=== PATIENT | female | born 1945 | race Caucasian/White ===

== ENCOUNTER 2020-04-24 10:35 | Emergency (ER) | payer MEDICARE, SELFPAY ==
--- NOTE | ~2020-04-24 | XR_ITS ---
XR wrist LT min 3V DATE: 04/24/2020 11:02 INDICATION: Fall. Generalized left wrist pain TECHNIQUE: 4 views COMPARISON: None FINDINGS: There are subtle virtually nondisplaced distal radial and ulnar styloid process fractures. Normal alignment at the wrist joint. Osteopenia. IMPRESSION: Virtually nondisplaced distal radial and ulnar styloid process fractures Reviewed, dictated and finalized at location A. IMPRESSION: Virtually nondisplaced distal radial and ulnar styloid process jackson whiteside
[2020-04-24 10:53] VITALS: BP 150/85; PULSE 86; RESP 16; TEMP 37.3; O2SAT 98
--- NOTE | 2020-04-24 10:58 | ED.UPPEXIN ---
HPI - Extremity Injury (Upper) General Chief Complaint: Extremity Injury, Upper Stated Complaint: Fell Left wrist pain Time Seen by Provider: 04/24/20 10:58 Source: patient and RN notes reviewed History of Present Illness HPI narrative: Patient is a 75-year-old female who presents the urgent care with complaints of left wrist injury. Patient states that she face planted while walking into [email or web address] approximately 1 hour ago . Patient states that she caught herself with her left wrist and is now having increased pain upon movement with mild swelling. Patient has not taken anything for her symptoms and denies hitting her head or any loss of consciousness. Mild abrasion noted to the right side of the nose as well as small scratch to the frame of the right side of her glasses. Patient is right-hand dominant. No other acute complaints. No acute distress noted. Patient read the plan of care. Related Data Home Medications Medication Instructions Recorded Confirmed No Home Medications 04/24/20 04/24/20 Allergies Allergy/AdvReac Type Severity Reaction Status Date / Time tamoxifen Allergy Mild Rash Verified 07/18/18 12:41 anastrozole Allergy Unknown CHRONIC Verified 07/18/18 12:41 COUGH clarithromycin Allergy Unknown could not Verified 08/16/18 16:08 sleep 48 hours Review of Systems Review of Systems: Narrative: CONSTITUTIONAL: Denies fever, chills, or sweats. EYES: Denies visual changes, redness, or discharge. ENT: Denies rhinorrhea, congestion, sore throat, or otalgia. CARDIOVASCULAR: Denies chest pain, palpitations, or edema. RESPIRATORY: Denies cough or dyspnea. GASTROINTESTINAL: Denies abdominal pain, nausea, vomiting, or diarrhea. GENITOURINARY: Denies dysuria or hematuria. SKIN: Denies rash or itching. MUSCULOSKELETAL: Reports of left wrist pain NEUROLOGIC: Denies headache, numbness, or weakness. All other systems reviewed are negative, except as documented in HPI. [facility] Family History Family History (Updated 04/08/18 @ 14:45 by DOCTOR UNKNOWN) Mother Patient's mother is Father Patient's father is Other Cerebrovascular accident Family history of osteoporosis Social History Social History Smoking status: Never smoker Alcohol intake: never Comments At the time of my signature, I reviewed and agree with the nursing past medical, surgical, social, and family history. There is no relevant family history pertinent to the patient complaint. Exam Narrative: Exam Narrative: GENERAL: This is a well-nourished, well-developed patient, in no apparent distress. HEAD: normocephalic, atraumatic. EYES: PERRL. Sclera clear/white. Vision is grossly intact. EARS: External ears normal NOSE: External nose normal with no obvious nasal discharge, nares without redness, no rhinorrhea. THROAT: Mucous membranes moist NECK: Neck supple SKIN: Small closed facial abrasion to the right side of the nose. Warm, intact with no suspicious lesions or rash, good texture and turgor. NEURO: awake, alert, and oriented to person, place and time. There were no obvious focal neurologic abnormalities. EXTREMITIES: Mild to moderate edema to the left distal radius and ulnar with increased pain upon movement. Positive strong left radial pulse with capillary refill less than 2 seconds. Course Vital Signs Vital signs: Vital Signs Temperature 99.1 F 04/24/20 10:53 Pulse Rate 86 04/24/20 10:53 Respiratory Rate 16 04/24/20 10:53 Blood Pressure 150/85 H 04/24/20 10:53 Pulse Oximetry 98 04/24/20 10:53 Temperature 99.1 F 04/24/20 10:53 Pulse Rate 86 04/24/20 10:53 Respiratory Rate 16 04/24/20 10:53 Blood Pressure 150/85 H 04/24/20 10:53 Pulse Oximetry 98 04/24/20 10:53 Reviewed?patient is informed that they may have pre-hypertension or hypertension based on a blood pressure reading in the department. I recommend the patient call the primary care prov
== END 2020-04-24 11:59 | disposition home or self-care (01) ==
PROVIDERS: Emergency Provider Nurse Practitioner Family; PCP Family Medicine
DX: S52.615A Nondisplaced fracture of left ulna styloid process, initial encounter for closed fracture (principal); W19.XXXA Unspecified fall, initial encounter
CPT/HCPCS: 29125; 73110; 99214; A4565; G0463

== ENCOUNTER 2020-08-18 12:22 | Outpatient (CLI) | payer MEDICARE, SELFPAY ==
--- NOTE | ~2020-08-18 | MM_ITS ---
EXAMINATION: MM screening [facility] BI w pablo HISTORY: Screening mammogram, history of right breast cancer TECHNIQUE: Craniocaudal and mediolateral oblique 3-D tomosynthesis images were obtained and synthetic 2-D images were generated. CAD analysis was submitted and interpreted. COMPARISON: 06/27/2019, 05/13/2018, 05/04/2017 BREAST PARENCHYMAL COMPOSITION: There are scattered areas of fibroglandular density. FINDINGS: There are stable lumpectomy changes in the outer right breast. There is no evidence of susp icious mass, calcification, or architectural distortion to suggest malignancy in either breast. There has been no suspicious interval change. IMPRESSION: 1. No mammographic evidence of malignancy. 2. Recommend routine screening mammography in one year. BI-RADS Category 2: Benign finding(s). Reviewed, dictated and finalized at location A.
== END 2020-08-18 12:23 | disposition home or self-care (01) ==
PROVIDERS: PCP Family Medicine; Visit Provider Physician Assistant Medical
DX: Z12.31 Encounter for screening mammogram for malignant neoplasm of breast (principal)
CPT/HCPCS: 77063; 77067

== ENCOUNTER 2022-01-26 12:56 | Outpatient (CLI) | payer MEDICARE, SELFPAY ==
--- NOTE | ~2022-01-26 | MM_ITS ---
EXAMINATION: MM diagnostic [facility] BI w pablo HISTORY: Itchiness of the breasts. History of right breast cancer. TECHNIQUE: Additional 3-D tomosynthesis images of the breasts were performed and synthetic 2-D images were generated. CAD analysis was submitted and interpreted. COMPARISON: Comparison to multiple prior studies sequentially, with oldest reviewed study dated 04/01. BREAST PARENCHYMAL COMPOSITION: Breast composed of scattered areas of fibroglandular density FINDINGS: The breasts are stable. No new masses, calcifications or architectural distortion are ident ified in either breast to suggest malignancy. IMPRESSION: 1. No mammographic evidence for malignancy in either breast. 2. Routine yearly screening mammogram and regular clinical breast examination are recommended. BI-RADS Category 1: Negative Reviewed, dictated and finalized at location A. E MOUNTER IMPRESSION: 1. No mammographic evidence for malignancy in either breast. 2. Routine yearly screening mammogram and regular clinical breast examination a re recommended. BI-RADS Category 1: Negative
== END 2022-01-26 12:57 | disposition home or self-care (01) ==
LOC: ANHIMG 13:11
PROVIDERS: PCP Family Medicine; Visit Provider Family Medicine
DX: C50.919 Malignant neoplasm of unspecified site of unspecified female breast (principal); R20.8 Other disturbances of skin sensation; N64.4 Mastodynia
CPT/HCPCS: 77062; 77066; G0279

== ENCOUNTER 2022-05-02 07:48 | Outpatient (CLI) | payer MEDICARE, SELFPAY ==
--- NOTE | ~2022-05-02 | DEXA_ITS ---
Bone Density Report Name: CHRISTIANO THOMSON Age: 77 Sex: Female Ethnicity: White Date of : 1945 Indication: postmenopausal; screening for osteoporosis; height loss; prior fracture; cancer; Referring Provider: BAM ABRAHAM Study: Bone densitometry was performed. Exam Date: May 02, 2022 Accession number: [id number] Bone Density: Region BMD T-score Z-score Classification AP Spine(L1-L4) 0.936 -1.0 1.6 Normal Femoral Neck (Left) 0.580 -2.4 -0.2 Osteopenia Total Hip (Left) 0.798 -1.2 0.8 Osteopenia World Health Organization criteria for BMD impression classify patients as: Normal (T-score at or above -1.0), Osteopenia (T-score between -1.0 and -2.5), or Osteoporosis (T-score at or below -2.5). 10-year Fracture Risk: FRAX not reported because: Prior hip or vertebral fracture Previous Exams: Region Exam Age BMD T-score BMD Change BMD Change Date g/cm2 vs Baseline vs Previous AP Spine (L1-L4) 05/02/2022 77 0.936 -1.0 -0.030 (-3.1%) -0.030 (-3.1%) 10/04/2019 74 0.966 -0.7 Total Hip(Left) 05/02/2022 77 0.798 -1.2 -0.031 (-3.7%) -0.031 (-3.7%) 10/04/2019 74 0.828 -0.9 *Denotes significance at 95% confidence level, LSC for AP Spine = 0.022 g/cm2, LSC for Total Hip = 0.027 g/cm2 # Denotes dissimilar scan types or analysis methods Clinical Information Provided by Patient: Have had a previous hip or vertebral fracture Has had a low trauma fracture Has the following medical conditions: Cancer Patient maximum height was 65 Menopause Age: 48 No regular weight bearing exercise Onset of menses at age 10 Number of children 2 Impression: The patient has low bone mass, based on the Left Femoral Neck T-score. The patient has risk factors, including: previous fracture. No significant bone loss was observed. Discussion: INCREASED RISK OF FRACTURE DUE TO HISTORY OF FRACTURE. The patient's previous fracture puts the patient at high risk of a future fracture. In untreated patients, the risk of osteoporotic fracture increases approximately two-fold for each 1.0 SD decrease in T-score. Low bone density is not the only risk factor for fracture; also consider factors such as patient's age, frailty or poor health, risk of falling, risk of injury, previous osteoporotic fracture, family history of osteoporosis, cigarette smoking, low body weight, etc. Not everyone with a low trauma fracture has osteoporosis; osteomalacia and other metabolic bone disorders should also be considered. Patients who have osteoporosis should be evaluated
== END 2022-05-02 07:49 | disposition home or self-care (01) ==
LOC: ANHIMG 07:52
PROVIDERS: PCP Family Medicine; Visit Provider Family Medicine
DX: M85.852 Other specified disorders of bone density and structure, left thigh (principal)
CPT/HCPCS: 77080

== ENCOUNTER 2023-07-02 09:03 | Outpatient (CLI) | payer MEDICARE, SELFPAY ==
[2023-07-02 12:11] LABS: Kit Draw Collected
== END 2023-07-02 09:04 | disposition home or self-care (01) ==
PROVIDERS: PCP Family Medicine; Visit Provider Nurse Practitioner Family
DX: C50.919 Malignant neoplasm of unspecified site of unspecified female breast (principal); D23.9 Other benign neoplasm of skin, unspecified; M85.80 Other specified disorders of bone density and structure, unspecified site; E66.9 Obesity, unspecified; S80.11XA Contusion of right lower leg, initial encounter; X58.XXXA Exposure to other specified factors, initial encounter
CPT/HCPCS: 36415

== ENCOUNTER 2023-12-21 07:07 | Outpatient (CLI) | payer MEDICARE, SELFPAY ==
--- NOTE | ~2023-12-21 | MM_ITS ---
EXAMINATION: MM screening [facility] BI w pablo HISTORY: Screening TECHNIQUE: Craniocaudal and mediolateral oblique 3-D tomosynthesis images were obtained and synthetic 2-D images were generated. CAD analysis was submitted and interpreted. COMPARISON: Comparison to multiple prior studies sequentially, with oldest reviewed study dated 12/2015. BREAST PARENCHYMAL COMPOSITION: Not dense: There are scattered areas of fibroglandular density. FINDINGS: There is a new mass in the lower central aspect of the left breast, possibly a skin lesion. There is stable coarse amorphous calcifications in the upper outer quadrant of the right breast, con sistent with prior lumpectomy site with fat necrosis. No evidence for malignancy in the right breast. IMPRESSION: 1. New 8 left breast mass lower central left breast posteriorly, possibly skin lesion. 2. Additional mammographic views and possible breast ultrasound are recommended. BI-RADS Category 0: Incomplete: Needs additional imaging evaluation. 2. Reviewed, dictated and finalized at location A. [employer] IMPRESSION: 1. New 8 left breast mass lower central left breast posteriorly, possibly skin lesion. 2. Additional mammographic views and possible breast ultrasound are recommended . BI-RADS Category 0: Incomplete: Needs additional imaging evaluation. 2.
== END 2023-12-21 07:08 | disposition home or self-care (01) ==
LOC: ANHIMG 07:09
PROVIDERS: PCP Family Medicine; Visit Provider Nurse Practitioner Family
DX: Z12.31 Encounter for screening mammogram for malignant neoplasm of breast (principal); N63.25 Unspecified lump in the left breast, overlapping quadrants
CPT/HCPCS: 77063; 77067

== ENCOUNTER 2024-04-22 10:33 | Outpatient (CLI) | payer MEDICARE, SELFPAY ==
--- NOTE | ~2024-04-22 | MMUS_ITS ---
EXAMINATION: MM diagnostic [facility] LT w pablo, US breast LT limited HISTORY: Follow-up left breast mass. Interval resection of cyst in the area of mammographic concern. TECHNIQUE: Additional 3-D tomosynthesis images of the left breast were performed and synthetic 2-D im ages were generated. CAD analysis was submitted and interpreted. High resolution Limited left breast ultrasound was performed. COMPARISON: 12/21/2023 BREAST PARENCHYMAL COMPOSITION: Not dense: There are scattered areas of fibroglandular density. FINDINGS: MAMMOGRAPHIC FINDINGS: There are no suspicious masses, calcifications or architectural distortion in the left breast. The ma ss seen in the lower inner quadrant of the left breast posteriorly on prior examination not visualize d on current study. ULTRASOUND: Limited left breast ultrasound: In the area of abnormality at 7:00, 9 cm from the nipple, there is a small irregular hypoechoic structure of the subcutaneous tissues, consistent with recent incisional s ite. No associated mass identified. IMPRESSION: 1. No evidence for malignancy in the left breast. 2. Routine yearly screening mammogram and regular clinical breast examination are recommended. BI-RADS Category 1: Negative Reviewed, dictated and finalized at location B. IMPRESSION: 1. No evidence for malignancy in the left breast. 2. Routine yearly screening mammogram and regular clinical breast examination a re recommended. BI-RADS Category 1: Negative
== END 2024-04-22 10:34 | disposition home or self-care (01) ==
PROVIDERS: PCP Family Medicine; Visit Provider Family Medicine
DX: R92.8 Other abnormal and inconclusive findings on diagnostic imaging of breast (principal)
CPT/HCPCS: 76642; 77061; 77065; G0279